=== PATIENT | male | born 1965 | race Asian ===

== ENCOUNTER 2018-10-17 18:14 | Emergency (ER) | payer OTHER | END 2018-10-17 19:14 | disposition home or self-care (01) | LOC: SCSER 18:14 | DX: N40.1 Benign prostatic hyperplasia with lower urinary tract symptoms (principal); R39.198 Other difficulties with micturition; E11.9 Type 2 diabetes mellitus without complications; E78.00 Pure hypercholesterolemia, unspecified | CPT/HCPCS: 51702 ==